=== PATIENT | female | born 1945 | race Caucasian/White ===

== ENCOUNTER 2018-12-20 07:00 | Day surgery (SDC) | payer MEDICARE ==
[~2018-12-20] VITALS: Ht 149.9 cm; Wt 69.0 kg
[~2018-12-20 07:00] MED LIST: ADULT ASPIRIN R81 MG PO; COZAAR25 MG PO; DAILY MULTIPLE1 EACH PO; ESTRACE0.5 MG PO; EUTHYROX25 MCG PO; GLUCOPHAGE500 MG PO; LOVASTATIN20 MG PO; PRILOSEC OTC20 MG PO; VERAPAMIL ER240 MG PO; VITAMIN B-1100 M1 PO
--- NOTE | 2018-12-20 11:46 | NUR ---
PT ALERT, ORIENTED AND SUPPORTED BY HER DAUGHTER ZAYDA. PT SEEMED PREPARED, TOLD VIRTUALLY NOONE ABOUT PROCEDURE. ZAYDA MENTIONED LATER THAT SHE WILL ENCOURAGE PT TO TAKE ADVANTAGE OF CANCER PT HELP. PT REQUESTED PRAYER, WILL FOLLOW NEEDED
--- NOTE | 2018-12-20 13:35 | NUR ---
12/20/18 Wilner Elena Cisse 1326- PT ARRIVES TO PACU FROM OR ON 6 L VIA MASK. SATS 97%. RESP EVEN AND UNLABORED. PT REACTIVE TO VERBAL STIMULUS BUT UNABLE TO ANSWER QUESTIONS. SURGICAL DRESSING C/D/I. SCDS ON 1326- PT TITRATED TO RA. RESP EVEN AND UNLABORED. PT OPENS EYES AND RESPONDS TO VERBAL STIMULUS. PT DENIES PAIN/NAUSEA. RA SATS 95%. 1333- RA SATS 90%. PT ENC TO TAKE DEEP BREATHES. PT BACK TO ASLEEP AND SATS REMAIN >90%. RESP EVEN AND UNALBORED. BLOOD GLUCOSE 140 POST OP. 1334- PT DENIES PAIN/NAUSEA.
[2018-12-20] MEDS ORDERED: IBUPROFEN600 MG PO (13:40)
[2018-12-20] MEDS ORDERED: MAPAP325 MG PO (13:40)
[2018-12-20] MEDS ORDERED: OXYCODON-ACETA1 EAC2 PO (13:40)
--- NOTE | 2018-12-20 14:27 | NUR ---
1400 PT ARRIVED FROM PACU, VOMITING. LITTLE EMESIS NOTED, ZOFRAN GIVEN BY AP MORTICIAN HELPER. REPORT RECVED. VITALS STABLE, O2 SATS NOTED TO BE 91% ON RA. PT RATES PAIN 5-6/10, STATES "I CAN FEEL IT MORE NOW." PER DR. HERNANDEZ MAY GIVE OFIRMEV 1 GM, ORDER REPEATED BACK. MAY ALSO GIVE MORPHINE 2-6 MG, Q30 MINS PRN IF OFIRMEV UNSUCCESSFUL. DISCUSSED PAIN MANAGEMENT WITH PT. ICE CHIPS AND WASH CLOTH GIVEN FOR COMFORT. PT RESTING, WILL CONTINUE TO MONITOR.
--- NOTE | 2018-12-20 15:12 | NUR ---
IN TO CHECK ON PT, PT AWAKE TALKING WITH DAUGHTER. PT STATES SHE IS STILL PAINFUL, PAIN WORSE WITH MOVEMENT. WILL CONTINUE TO MONITOR PAIN. VITALS STABLE, 02 ON RA. DISCUSSED DISCHARGE CRITERIA. WILL CONTINUE TO MONITOR PT.
--- NOTE | 2018-12-20 16:23 | NUR ---
1600 IN TO CHECK ON PT. PT STATES SHE IS FEELING BETTER. PT RATES PAIN 4/10 WITH MOVEMENT AND 2/10 IF RESTING. PT STATES THIS IS GOOD FOR HER. VITALS STABLE. JUICE AND CRACKERS GIVEN. NO FURTHER NEEDS AT THIS TIME. DUAGHTER AT BEDSIDE. NO FURTHER NEEDS AT THIS TIME.
--- NOTE | 2018-12-20 16:41 | NUR ---
1615 PT UP TO RESTROOM WITH ASSIST FROM RN. PT TOLERATED WELL. DENIES DIZZINESS OR BEING LIGHT HEADED. PT READY TO DC. IV DC'D. PT DRESSING WITH ASSIST OF DAUGHTER.
--- NOTE | 2018-12-23 15:01 | OR ---
[facility] [address] [place], [place] [address] Signed DATE OF OPERATION: 12/20/2018 SURGEON: Jesenia Hernandez MD PREOPERATIVE DIAGNOSIS: Right lower outer infiltrating ductal breast carcinoma (ER, NE positive, HER2/jaamr negative). POSTOPERATIVE DIAGNOSIS: Right lower outer infiltrating ductal breast carcinoma (ER, NE positive, HER2/jamar negative). FINDINGS: Frozen pathology, sentinel lymph nodes negative for metastatic disease x4. PROCEDURE: 1. Injection of methylene blue for sentinel lymph node identification. 2. Deep axillary lymph node biopsy x4. 3. Right partial mastectomy with oncoplastic closure using preoperative localizing wire. ANESTHESIA: General LMA; Adrián Nguyen CRNA. INDICATION: This 73-year-old white woman is a patient of Dr. Maricarmen Madrid and has never done breast self exam before. She underwent a screening mammogram in October, which noted an abnormality in the lower outer aspect of the right breast. Image-guided biopsy was undertaken by Dr. Bowden, which showed an infiltrating ductal carcinoma, nuclear grade 2/3, mitotic grade 2/3 and the lesion markedly ER and NE positive, HER2/jamar negative. There is no palpable lesion, no regional adenopathy by clinical exam. Her options of management were reviewed in detail, which include partial mastectomy with radiation therapy and sentinel lymph node identification, possible axillary dissection versus total mastectomy, sentinel lymph node dissection and possible axillary dissection. She prefers breast conservation therapy if at all possible. The risks of operation include, but is not limited to bleeding, infection, cosmetic deformity, need for additional treatment should metastatic disease be found and a certain recommendation for radiation therapy as well. Understanding the factors related to breast conservation approach to her breast cancer, she wished to proceed. Electronically Signed By: JESENIA HERNANDEZ MD 12/23/18 1501 PATIENT NAME: CHIO CLAY OPERATIVE REPORT DATE OF : 47 REPORT #: [id number] PHYSICIAN: JESENIA HERNANDEZ MD PCP: MARICARMEN MADRID MD REPORT IS CONFIDENTIAL AND NOT TO BE RELEASED WITHOUT AUTHORIZATION [facility] [address] [place], [place] [address] Signed FINDINGS: Good uptake to sentinel lymph nodes was undertaken based on radionuclide imaging study as well as methylene blue dye. The lesion was nonpalpable, but was well localized and within the parenchyma of the breast and the lesion was easily identified. It was nearly to the level of the chest wall. Wide excision was undertaken with needle-localized image guidance and an oncoplastic approach was taken including an inframammary incision to excise the primary tumor. A clinically negative margin is maintained and an additional tissue was excised to more reliably provide for negative margin. Frozen pathology showed 4 sentinel lymph nodes to be negative for metastatic disease. DESCRIPTION OF PROCEDURE: The patient was brought to the operating room, given a general LMA type anesthetic. Preoperative antibiotic Ancef was given. Sequential compression device stockings used and heparin subcutaneously administered. She had been received from radiology suite having undergone radionuclide imaging localization of sentinel lymph nodes as well as passage of a localizing wire for the primary lesion, which was nonpalpable. 1 mL of methylene blue was injected beneath the epidermis in the periareolar area. The breast axilla and chest wall were then prepared with a spray Betadine solution. Using the C-Trak gamma probe, the area of highest uptake in the right axilla was identified and a transverse incision was made there. Dissection was carried through the subcutaneous tissue with all due care. Electrocautery was used for hemostasis. Ultimately, a blue avid hot lymph node was noted, it was about a cm and a half in size. This was excised after application of few hemoclips. It was passed as sentinel lymph node number one. Three additional nodes were dissected free from the axillary space using the gamma probe device for localization. Notably, the other three lymph nodes did not uptake methylene blue dye. The wound was then packed with gauze as the sentinel lymph nodes were being analyzed by the pathologist. Attention was turned to the primary lesion. The wire emanated from the inferior lateral aspect of the right breast. It appeared that an inframammary incision would be most cosmetically acceptable. On that basis, a small incision was made in the inferior lateral aspect of the mammary crease. Dissection carried through the dermis and subcutaneous tissue with electrocautery. Elevation of the breast was undertaken enough that dissection allowed for identification of the wire, which was then delivered into the wound itself. An Allis clamp was applied to the parenchyma and wide resection was undertaken with electrocautery. Deep in the substance of the breast, relatively close to the chest wall, palpable abnormality could be noted. Wide resection was undertaken with this ultimately excising a generous specimen. This was sent for specimen radiograph, which confirmed the offending lesion to be in the resected specimen. Additional tissue in the region of the biopsy cavity in the depths and in the superior and lateral aspect was excised for an additional negative margin. Irrigation was undertaken with saline and ultimately sterile water for its tumor lytic effect. Electronically Signed By: JESENIA HERNANDEZ MD 12/23/18 1501 PATIENT NAME: CHIO CLAY OPERATIVE REPORT DATE OF : 47 REPORT #: [id number] PHYSICIAN: JESENIA HERNANDEZ MD PCP: MARICARMEN MADRID MD REPORT IS CONFIDENTIAL AND NOT TO BE RELEASED WITHOUT AUTHORIZATION [facility] [address] [place], [place] [address] Signed Hemostasis was assured with electrocautery. The axilla was reinspected showing good hemostasis. By this point, sentinel lymph nodes were all reported as negative. Closure of the wound was undertaken with interrupted 2-0 Vicryl in deep fatty layer and a running subcuticular 3-0 Vicryl for the skin. Steri-Strips were applied. Parenchymal reapproximation was undertaken in the breast defect with 2-0 Vicryl suture minimizing the cosmetic deformity noted. The skin was then closed with running subcuticular 3-0 Vicryl. Steri-Strips were applied to both wounds as was a Mepilex silver sponge dressing and an OpSite. The patient was ultimately extubated and transferred to recovery room in good condition having suffered no complications. Sponge, needle, and instrument counts were reported as correct x3. Jesenia Hernandez MD /KRUPAL /[id number] cc: MD Miguel Naik MD Copies: MIGUEL BOWDEN MD ~ Electronically Signed By: JESENIA HERNANDEZ MD 12/23/18 1501 PATIENT NAME: CHIO CLAY OPERATIVE REPORT DATE OF : 47 REPORT #: [id number] PHYSICIAN: JESENIA HERNANDEZ MD PCP: MARICARMEN MADRID MD REPORT IS CONFIDENTIAL AND NOT TO BE RELEASED WITHOUT AUTHORIZATION
== END 2018-12-20 16:45 | disposition home or self-care (01) ==
LOC: DS 07:00 → US 08:00 → EDSTATUS 08:00 → DS 16:45
PROVIDERS: Surgery
PROC: 0HBT0ZZ Excision of Right Breast, Open Approach (ICD-10-PCS; principal; 2018-12-20 10:00)
PROC: 07B50ZX Excision of Right Axillary Lymphatic, Open Approach, Diagnostic (ICD-10-PCS; 2018-12-20 10:00)
DX: C50.511 Malignant neoplasm of lower-outer quadrant of right female breast (principal); E03.9 Hypothyroidism, unspecified; E11.9 Type 2 diabetes mellitus without complications; Z79.82 Long term (current) use of aspirin; Z17.0 Estrogen receptor positive status [ER+]; Z79.899 Other long term (current) drug therapy; Z79.84 Long term (current) use of oral hypoglycemic drugs
CPT/HCPCS: 00404; 19285; 76098; 77065; 78195; 88305; 88307; 88341; 88342; A9541; J0131; J0690; J1644; J1885; J2270; J2405; J2704; J2765; J3010; J7120

== ENCOUNTER 2025-07-29 18:17 | Emergency (ER) | payer MEDICARE ==
[~2025-07-29] VITALS: Ht 149.9 cm; Wt 47.0 kg
[~2025-07-29 18:17] MED LIST changes: +ANASTROZOLE1 MG PO; +IBUPROFEN600 MG PO; +MAPAP325 MG PO; +OXYCODON-ACETA1 EAC2 PO
[2025-07-29] MEDS ORDERED: LOVASTATIN40 MG PO (18:50)
[2025-07-29] MEDS ORDERED: FLUOXETINE HCL10 MG PO (18:50)
[2025-07-29] MEDS ORDERED: BREO ELLIPTA 21 EACH INH (18:51)
[2025-07-29] MEDS ORDERED: LEVOTHYROXINE50 MCG PO (18:51)
[2025-07-29 18:59] LABS: MCH 29.5 PG (25.6-32.2); MCHC 32.7 g/dL (32.2-35.5); MCV 90.0 fL (79.4-94.8); RBC 4.31 M/uL (3.93-5.22)
[2025-07-29 19:12] LABS: ALT (SGPT) 13.0 U/L (14-59); AST (SGOT) 22.0 U/L (15-37); GLOMERULAR FILTRATION RATE,EST 78.0 mL/min (>60); PROTEIN, TOTAL 6.7 g/dL (6.4-8.2); UREA NITROGEN 14.0 mg/dL (7-18)
[2025-07-29 19:35] LABS: BANDS, MANUAL DIFF 4; BASOPHILS, MANUAL DIFF 8; EOSINOPHILS, MANUAL DIFF 8; LYMPHOCYTES, MANUAL DIFF 29; MONOCYTES, MANUAL DIFF 1; NEUTROPHILS, MANUAL DIFF 50
[2025-07-29 21:55] LABS: CORONAVIRUS COVID-19 AG NEGATIVE (NEGATIVE)
[2025-07-29 22:11] LABS: INR 1.09 (0.80-1.30); PROTIME 13.3 Sec (11.2-14.2)
[2025-07-29 22:15] LABS: LACTATE DEHYDROGENASE 743.0 U/L (81-234)
[2025-07-29] MEDS ORDERED: HYDROXYUREA 500 MG CAP PO ONE (22:15)
[2025-07-29] MEDS ORDERED: HYDROXYUREA500 MG PO (22:46)
[2025-07-29 22:58] VITALS: BP 130/78
== END 2025-07-29 22:55 | disposition home or self-care (01) ==
LOC: ED 18:17
PROVIDERS: Emergency Medicine; Family Medicine
DX: D72.829 Elevated white blood cell count, unspecified (principal); J44.9 Chronic obstructive pulmonary disease, unspecified; I48.91 Unspecified atrial fibrillation; Z87.891 Personal history of nicotine dependence; Z88.8 Allergy status to other drugs, medicaments and biological substances; Z79.84 Long term (current) use of oral hypoglycemic drugs; Z79.82 Long term (current) use of aspirin
CPT/HCPCS: 36415; 70450; 71250; 80053; 83605; 83615; 84550; 85025; 85060; 85610; 86140; 87040; 99284-25

== ENCOUNTER 2025-07-31 11:47 | Day surgery (SDC) | payer MEDICARE ==
[~2025-07-31] VITALS: Ht 149.9 cm; Wt 47.7 kg
[~2025-07-31 11:47] MED LIST changes: +BREO ELLIPTA 21 EACH INH; +FLUOXETINE HCL10 MG PO; +HYDROXYUREA500 MG PO; +LEVOTHYROXINE50 MCG PO; +LOVASTATIN40 MG PO
[2025-07-31 12:15] VITALS: BP 147/56
[2025-07-31] MEDS ORDERED: MIDAZOLAM HCL 5 MG/5 ML VIAL IV PRN (12:30)
[2025-07-31] MEDS ORDERED: fentaNYL citrate 100 MCG/2 ML VIAL IV PRN (12:30)
[2025-07-31] MEDS ORDERED: LIDOCAINE HCL 1% 5 ML SDV INJ ONE (12:30)
[2025-07-31] MEDS ORDERED: IBLOOD GLUCOSE TEST STRIP 1 EA TEST VI PRN (12:30)
[2025-07-31] MEDS ORDERED: LACTATED RINGER'S 1,000 ML IV SCH (12:30)
[2025-07-31 12:34] LABS: MCH 29.4 PG (25.6-32.2); MCHC 32.6 g/dL (32.2-35.5); MCV 90.2 fL (79.4-94.8); RBC 4.59 M/uL (3.93-5.22)
--- NOTE | 2025-07-31 12:49 | NUR ---
LAB CALLED WITH CRITICAL VALUE WBC 150.90. DR URBINA OFFICE NOTIFIED.
[2025-07-31] MEDS ORDERED: LIDOCAINE HCL 2% 5 ML SDV ONE (12:53)
[2025-07-31 13:00] LABS: BASOPHILS, MANUAL DIFF 9; EOSINOPHILS, MANUAL DIFF 2; LYMPHOCYTES, MANUAL DIFF 17; MONOCYTES, MANUAL DIFF 1; NEUTROPHILS, MANUAL DIFF 71
[2025-07-31 13:02] LABS: NEUTROPHILS, ABSOLUTE 107.14 K/uL (1.56-6.13)
[2025-07-31 13:03] LABS: EOSINOPHILS, ABSOLUTE 3.018 K/uL (0.04-0.36); MONOCYTES, ABSOLUTE 1.51 K/uL (0.24-0.86)
[2025-07-31 13:04] LABS: BASOPHILS, ABSOLUTE 13.581 K/uL (0.01-0.08)
--- NOTE | 2025-07-31 13:22 | NUR ---
07/31/25 1322 Martha Castro 1316-PATIENT ARRIVED TO PACU ON 2L NC RR EVEN LAYING PRONE NONAROUSABLE. IVF INFUSING. SR HR 70-80'S. BANDAIDS TO RIGHT AND LEFT LOWER BACK INTACT.
[2025-07-31 14:16] VITALS: BP 108/63
--- NOTE | 2025-08-05 17:12 | PATH ---
[facility] [address] [place], [place] [address] Signed SPECIMEN(S): A BONE MARROW - CORE, LEFT SPECIMEN(S): B BONE MARROW - ASPIRATION SPECIMEN(S): C FLOW CYTOMETRY, BM EDTA CLINICAL HISTORY: 79 years old woman. Clinical acute monocytic leukemia. DIAGNOSIS SUMMARY: Peripheral blood - Marked leukocytosis, 150.9 K/ul - Basophilia, absolute basophil count 13,580/ul. - 1% circulating blasts. Bone marrow biopsy and aspiration: - Hypercellular marrow with marked myeloid hyperplasia. - Trilineage hematopoiesis with erythroid hypoplasia. - Findings are consistent with chronic myelogenous leukemia. - FISH probe for BCR/ABL1 is positive. - See diagnostic comment. DIAGNOSTIC COMMENT: The findings are consistent with chronic myelogenous leukemia with 1% blasts. The FISH probe for BCR/ABL1 is positive. Pending studies at the time of this report include chromosome analysis and quantitative BCR/ABL1 studies for p210 and p190. These will be reported via addendum. Preliminary results were discussed with Dr Kaufman. HISTORICAL SUMMARY: 79 yo female with a prior history of stage 1A breast carcinoma. She presents with unexplained leukocytosis and basophilia. PERIPHERAL BLOOD: HEMOGRAM (07/31/2025): WBC 150.9 K/ul, RBC 4.59 M/ul, HGB 13.5 g/dl, HCT 41.4%, MCV 90.2 fl, MCH 29.4 pg, MCHC 32.6 g/dl, RDW 17.1%, PLT 490 K/ul. AUTOMATED DIFFERENTIAL COUNT: Blasts 1%. myelocytes, metamyelocytes, and band forms 23.1%, neutrophils 55.4%, lymphocytes 4.6%, monocytes 4.0%, eosinophils 4.8%, basophils 7.1%. The red blood cells are normocytic and normochromic with minimal aniso-poikilocytosis. The neutrophils are unremarkable. Lymphocytes are composed of small mature appearing forms. Platelets appear normal in number and morphology with no platelet clumping or RBC microangiopathic effect identified. No blasts are identified. PATIENT NAME: CHIO CLAY PATHOLOGY DATE OF : 47 REPORT #: [id number] PHYSICIAN: GURPREET WALKER PCP: LUZ ELENA COX MD REPORT IS CONFIDENTIAL AND NOT TO BE RELEASED WITHOUT AUTHORIZATION [facility] [address] [place], [place] [address] Signed BONE MARROW: ASPIRATE SMEARS/TOUCH IMPRINT: The aspirate smears are adequate for evaluation. Scattered erythroid precursors show adequate maturation with essentially normal morphology. The myeloid precursors show full maturation with unremarkable morphology. There is no increase in blasts. Megakaryocytes are identified with a normal morphology. BONE MARROW DIFFERENTIAL COUNT (300 cells): Blasts 1%. promyelocytes 1%, myelocytes 11%, metamyelocytes/bands/segs 72%, erythroid precursors 3%, lymphocytes 2%, monocytes 0%, eosinophils 11%, plasma cells less than 1%. M:E ratio: 31:1 BONE MARROW CORE BIOPSY/ASPIRATE CLOT/CELL BLOCK: The aspirate clot section and the core biopsy are adequate for evaluation. The core biopsy demonstrates unremarkable trabecular bone. The cellularity is markedly increased for age, estimated at 99%. The erythroid precursors are markedly decreased in number with a normal morphology. The myeloid precursors are markedly increased in number with a left maturational shift with no significant dyspoiesis. Blasts are not increased. Megakaryocytes appear normal in number with abnormal small monolobated megakaryocytes. No granulomas, atypical lymphoid aggregates or foreign malignant cells are detected. SPECIAL STAINS (with adequate controls): - iron (aspirate smear): Decreased marrow iron stores by Prussian Blue stain. No ring sideroblasts are identified. - iron (cell block): Decreased marrow iron stores by Prussian Blue stain. No ring sideroblasts are identified. - PAS (block A1): Increased megakaryocytes with small monolobated forms. IMMUNOHISTOCHEMISTRY STAINS (performed on block A1 with adequate controls). - CD71: Less than 10% FLOW CYTOMETRY: Bone marrow, flow cytometry: - Increased myeloid cells with no diagnostic abnormal population detected by flow cytometry. - See comment. COMMENT: While no diagnostic hematopoietic abnormality is detected in this study, correlation with clinical, morphologic, and genetic findings is recommended for full interpretation and to assess for disease processes not fully examined by flow cytometry analysis, including PATIENT NAME: CHIO CLAY PATHOLOGY DATE OF : 47 REPORT #: [id number] PHYSICIAN: GURPREET PATHOLOGY PCP: LUZ ELENA COX MD REPORT IS CONFIDENTIAL AND NOT TO BE RELEASED WITHOUT AUTHORIZATION [address] [address] Signed myelodysplastic syndrome or myeloproliferative neoplasm. FLOW CYTOMETRY ANALYSIS: FLOW DIFFERENTIAL (% Total CD45 vs. SSC gating): Myeloid 89%; Lymphoid 1%; Monocyte 1%; Basophils: 1%. Dim CD45/Blast: 1.0%. Cell Count: 9.8 x 10*3/uL. POPULATION ANALYSIS: BLASTS: Analysis of the dim CD45 gate demonstrates 1.0% myeloblasts by CD34/CD117. LYMPHOID CELLS: The lymphocyte gate comprises 1% of total events and includes 89% T-cells with a CD4:CD8 ratio of 0.6:1. A subset T-cell population is detected (33% of lymphocytes, 0.4% of total events), co-expressing CD3 and CD4, with some brighter CD5, while negative for CD16, CD56 and CD57. 5% of lymphocytes are polyclonal B-cells with a kappa:lambda ratio of 1.7:1. The remainders are NK-cells. MYELOID CELLS: The myeloid population comprises 89% of the total events. Some increased CD56 expression is observed. MONOCYTES: The monocyte population comprises 1% of the total events. Monocytes are not increased. No aberrant immunophenotypic expression is detected. PLASMA CELLS: A significant plasma cell population is not detected in the neg-dimCD45/CD38 screening gate. Initial Antibodies Used: KAPPA, LAMBDA, CD20, CD10, CD19, CD23, CD38, CD16, CD56, CD8, CD5, CD2, CD4, CD7, CD3, CD14, CD33, CD13, HLADR, CD34, CD117, CD15, CD45. Additional Antibodies (necessary for further analysis of T/NK lymphocytes): CD57. Total Antibodies Used: 24. SHR FINAL DIAGNOSIS OF FLOW CYTOMETRY PERFORMED BY: Evaristo Cisneros MD, Aug 01 2025 11:33AM CYTOGENETICS: Chromosome analysis is pending. FISH ANALYSIS: FISH (fluorescence in situ hybridization) RESULT: Detected INTERPRETATION: BCR/ABL1 t(9;22) rearrangement: Detected. Fluorescence in situ hybridization (FISH) analysis was performed using a tricolor, dual fusion BCR/ABL1 probe set used to detect the (9;22) translocation associated with CML and less commonly ALL or PATIENT NAME: CHIO CLAY PATHOLOGY DATE OF : 47 REPORT #: [id number] PHYSICIAN: GURPREET PATHOLOGY PCP: LUZ ELENA COX MD REPORT IS CONFIDENTIAL AND NOT TO BE RELEASED WITHOUT AUTHORIZATION [facility] [address] [place], [place] [address] Signed AML. The tri color probe set also detects derivative chromosome 9 deletions. This analysis showed the abnormal dual fusion positive signal pattern ([id number], 96.5%, normal < 2.3%). This represents an ABNORMAL result. This analysis is limited to abnormalities detectable by the specific probes included in the study. FISH results should be interpreted within the context of a full clinical and hematopathology evaluation. ISCN: Probe Set Detail: BCR/ABL1/ASS1 t(9;22): nuc cuba 9q34(ABL1x3,ASS1x2),22q11.2(BCRx3)(ABL1 con BCRx2)[193/200] References: [place] [employer] and Cytogenetics in Oncology and Hematology [email or web address] FISH Analysis Summary: Nuclei Scored: 200 Scoring Method: Manual; CPT Code 19782 Number of Probe units: 1 Multiplex Cells analyzed: Interphase Probe sets: Chrom 9: ABL1, Chrom 9: ASS1, Chrom 22: BCR MOLECULAR / PCR: Quantitative BCR-ABL1 p210 and p190 studies are pending. GROSS DESCRIPTION: Two specimens are received in two containers A. The specimen, labeled and designated "Lulú, bone marrow core biopsy," is received in formalin and consists of two del toro cylindrical cores of bone that are aggregate 1.5 cm long and 0.2 cm in diameter. After decalcification in Immunocal the specimen is entirely submitted in (A1). B. The specimen, labeled and designated "Lulú bone marrow clot," is received in formalin and consists of a 2.1 x 0.7 x 0.6 cm aggregate of red brown clot material. Entirely submitted in (B1). JS (under the direct supervision of a pathologist) The Gross Description was prepared using a voice recognition system. The report was reviewed for accuracy; however, sound-alike word errors, addition and/or deletions may occur. If there is any question about this report, please contact Client Services. PATIENT NAME: CHIO CLAY PATHOLOGY DATE OF : 47 REPORT #: [id number] PHYSICIAN: GURPREET WALKER PCP: LUZ ELENA COX MD REPORT IS CONFIDENTIAL AND NOT TO BE RELEASED WITHOUT AUTHORIZATION [address] [address] Signed ADDITIONAL NOTES: Immunohistochemical and/or in situ hybridization studies if performed in this case included appropriate positive controls that reacted as expected. This test was developed and its performance characteristics determined by [facility]. It has not been cleared or approved by the U.S. Food and Drug Administration. The FDA has determined that such clearance or approval is not necessary. This test is used for clinical purposes. It should not be regarded as investigational or for research. [facility] is certified under the Clinical Laboratory Improvement Amendments of 1988 (CLIA) as qualified to perform high complexity clinical laboratory testing. In this case, certain antibodies were performed by both immunohistochemistry and flow cytometry analysis because flow cytometry analysis did not fully explain all the light microscopic findings. Immunohistochemistry aided in the analysis. Both methods are deemed medically necessary in this case. This test was developed and its performance characteristics determined by [facility]� It has not been cleared or approved by the US Food and Drug Administration. The [employer] probe vendor for this study was [employer]. This test was developed and its performance characteristics determined by [facility]. It has not been cleared or approved by the US Food and Drug Administration. The FDA does not require this test to go through premarket FDA review. This test is used for clinical purposes. It should not be regarded as investigational or for research. This laboratory is certified under the Clinical Laboratory Improvement Amendments (CLIA) as qualified to perform high complexity clinical laboratory testing. PERFORMING LABORATORY: The technical preparation of flow cytometry was performed by [facility], [address] [place] [address] (CLIA#:� [id number]). Professional interpretation was performed by [facility], [address] [place] [id number] (CLIA#: [id number]). The technical component of the FISH testing was performed by [facility], [address] [place] [address] (CLIA#:� [id number]). Professional interpretation was performed by [facility], [address] [place] [address] (CLIA#: [id number]). PATIENT NAME: CHIO CLAY PATHOLOGY DATE OF : 47 REPORT #: [id number] PHYSICIAN: GURPREET PATHOLOGY PCP: LUZ ELENA COX MD REPORT IS CONFIDENTIAL AND NOT TO BE RELEASED WITHOUT AUTHORIZATION [address] [address] Signed FINAL DIAGNOSIS OF FISH STUDY PERFORMED BY: Shwetha Urbano MD, Pathologist Aug 05 2025 3:17PM Technical component was performed by [facility], [address] [place] [address] (CLIA# [id number]). Professional interpretation was performed by [facility], [address] [place] [id number] (CLIA#: [id number]). IMAGES: [id number]: [id number] A: [id number]: [id number] A: [id number] A: [id number] Diagnostician: Evaristo Cisneros MD Pathologist Electronically Signed 08/05/2025 Copies: ~ PATIENT NAME: CHIO CLAY PATHOLOGY DATE OF : 47 REPORT #: [id number] PHYSICIAN: GURPREET PATHOLOGY PCP: LUZ ELENA COX MD REPORT IS CONFIDENTIAL AND NOT TO BE RELEASED WITHOUT AUTHORIZATION
== END 2025-07-31 14:25 | disposition home or self-care (01) ==
LOC: DS 11:47
PROVIDERS: ATTEND Specialist
PROC: 07DR0ZX Extraction of Iliac Bone Marrow, Open Approach, Diagnostic (ICD-10-PCS; principal; 2025-07-31 12:30)
DX: C92.10 Chronic myeloid leukemia, BCR/ABL-positive, not having achieved remission (principal); I10 Essential (primary) hypertension; C50.911 Malignant neoplasm of unspecified site of right female breast; Z87.891 Personal history of nicotine dependence; Z17.0 Estrogen receptor positive status [ER+]; Z79.811 Long term (current) use of aromatase inhibitors; Z79.899 Other long term (current) drug therapy; Z88.8 Allergy status to other drugs, medicaments and biological substances
CPT/HCPCS: 01112; 36415; 85025; 88184; 88185; 88305; 88311; 88313; 88342; 88377; J2003; J2704; J7121